=== PATIENT | female | born 1990 | race Caucasian/White ===

== ENCOUNTER → 2018-12-26 | Outpatient (CLI) | payer OTHER ==
[~2018-12-26] MED LIST: ACHD5005 PO; AMPI250C11 PO; BENZ56AE TP; CLC500CT PO; CODE-54 PO; DCS100C PO; FAMO20TA13 PO; FERR-57 PO; FRS325T PO; IBP600T1 PO; MAGN400C PO; METR500T PO; NIFE20CA PO; ONDA4TAB8 PO; OXYC-12 PO; POTA10TA36 PO; PREN1TAB64 PO
--- NOTE | 2018-12-26 14:48 | Diagnostic Imaging Report ---
INDICATION: Injury to left foot. AP, oblique, and lateral views of the left foot are obtained. There is an acute fracture of the base of the fifth metatarsal without significant displacement. Remaining bony structures are intact. Joint spaces are unremarkable. IMPRESSION: Acute nondisplaced fracture of the base of the fifth metatarsal. Dictated by: Dictated on workstation # [id number]
== END ==
LOC: RAD FS 13:50
PROVIDERS: ATTEND Nurse Practitioner
DX: S92.355A Nondisplaced fracture of fifth metatarsal bone, left foot, initial encounter for closed fracture (principal)
CPT/HCPCS: 73630

== ENCOUNTER → 2019-01-12 | Outpatient (CLI) | payer OTHER ==
--- NOTE | 2019-01-12 09:45 | Diagnostic Imaging Report ---
INDICATION: Fracture, followup. TECHNIQUE: 3 views of the left foot CORRELATION STUDY: 12/26/2018 FINDINGS: Pes planus alignment is present. A predominantly transversely oriented fracture at the base of the fifth metatarsal is again demonstrated. Fracture line is slightly better visualized, perhaps owing to some bony resorption. Alignment unchanged. No significant bridging healing callus formation. Remaining structures unchanged. IMPRESSION: 1. No appreciable interval change and/or healing suggested about the nondisplaced fracture at the base of the fifth metatarsal. Dictated by: Dictated on workstation # [id number]
== END ==
LOC: RAD FS 09:07
PROVIDERS: ATTEND Nurse Practitioner
DX: S92.355D Nondisplaced fracture of fifth metatarsal bone, left foot, subsequent encounter for fracture with routine healing (principal)
CPT/HCPCS: 73630

== ENCOUNTER → 2019-02-02 | Outpatient (CLI) | payer OTHER ==
--- NOTE | 2019-02-02 13:03 | Diagnostic Imaging Report ---
INDICATION: Followup fifth metatarsal fracture. COMPARISON: 01/12/2019 FINDINGS: Three views of the left foot were obtained and again show transverse oriented fracture of the proximal fifth metatarsal extending into the articular surface. Fracture line is somewhat less conspicuous on today's exam suggestive of partial interval healing. Fracture fragments are in stable alignment. No new acute fracture or dislocation is identified. Soft tissue structures are unremarkable. No unexpected radiopaque foreign bodies are seen. IMPRESSION: 1. Redemonstration of partially healed fracture of the fifth metatarsal. Dictated by: Dictated on workstation # [id number]
== END ==
LOC: RAD FS 09:29
PROVIDERS: ATTEND Nurse Practitioner
DX: S92.355D Nondisplaced fracture of fifth metatarsal bone, left foot, subsequent encounter for fracture with routine healing (principal)
CPT/HCPCS: 73630

== ENCOUNTER → 2019-03-09 | Outpatient (CLI) | payer OTHER ==
--- NOTE | 2019-03-09 09:00 | Diagnostic Imaging Report ---
INDICATION: 5th metatarsal fracture, follow-up. TECHNIQUE: 3 views of the left foot CORRELATION STUDY: 02/02/2019 FINDINGS: There has been suggestion of slight interval healing about the obliquely oriented fracture at the base of the 5th metatarsal. Portions of fracture lines are still visualized but has become slightly blurred. Alignment stable and anatomic. No new bony abnormality. IMPRESSION: 1. Progressive but incomplete healing of the nondisplaced proximal 5th metatarsal fracture. Dictated by: Dictated on workstation # [id number]
== END ==
LOC: RAD FS 08:44
PROVIDERS: ATTEND Nurse Practitioner
DX: S92.355D Nondisplaced fracture of fifth metatarsal bone, left foot, subsequent encounter for fracture with routine healing (principal)
CPT/HCPCS: 73630